=== PATIENT | female | born 1975 | race Caucasian/White ===

== ENCOUNTER 2018-10-23 10:45 | Outpatient (CLI) | payer OTHER, SELFPAY ==
[2018-10-23 14:03] LABS: Cholesterol 238 mg/dL (50-200); HDL Cholesterol 46 mg/dL (40-60); LDL CHOLESTEROL 155 mg/dL (<100); TSH (W/Ref FT4) 1.76 uIU/mL (0.358-3.74); Triglyceride 183 mg/dL (30-150)
== END 2018-10-23 11:05 ==
PROVIDERS: PCP Family Medicine; Visit Provider Family Medicine
DX: Z00.00 Encounter for general adult medical examination without abnormal findings (principal); Z13.220 Encounter for screening for lipoid disorders; Z13.29 Encounter for screening for other suspected endocrine disorder
CPT/HCPCS: 36415; 80061; 83721; 84443

== ENCOUNTER 2019-10-29 19:05 | Outpatient (REF) | payer OTHER, SELFPAY ==
--- NOTE | 2019-10-29 15:30 | PAPFT_PTH ---
PATIENT: Pearl Lira LOC: [facility] U#:[id number] AGE/SX: 44/F ROOM: RE10/29/[address]: Lidia Quispe MD, DC : 1975 BED: DIS: 10/29/2019 SPEC #: [id number] RECD: 10/30/19 12:54 STATUS: YENY REBlanca #: [id number] EUFEMIA: 10/29/19 15:[address]: Lidia Quispe DEPT: [facility] Cytology RECD BY: Sussy Calvert Tissues: 1 - CX/ENDOCX FOR PAP SMEARS Procedures: PAP THIN PREP/UVM Screening Comments: [id number] (CHLAMYDIA/GC)
[2019-10-31 12:14] LABS: Chlamydia Result Negative (Negative); GC Result Negative (Negative)
== END 2019-10-29 19:25 ==
LOC: LBN 19:05
PROVIDERS: PCP Family Medicine; Visit Provider Family Medicine
DX: Z11.3 Encounter for screening for infections with a predominantly sexual mode of transmission (principal); Z12.4 Encounter for screening for malignant neoplasm of cervix; Z11.51 Encounter for screening for human papillomavirus (HPV)
CPT/HCPCS: 87491; 87591; 88142

== ENCOUNTER 2021-01-05 04:20 | Outpatient (CLI) | payer OTHER, SELFPAY ==
[2021-01-05 09:30] LABS: Abs Immature Grans 0.02 10^3/uL (0.0-0.06); Absolute Basophil Count 0.04 10^3/uL (0.0-0.2); Absolute Lymphocyte Count 1.29 10^3/uL (1.2-3.4); Absolute Monocyte Count 0.35 10^3/uL (0.1-0.8); Absolute Neutrophil Count 4.26 10^3/uL (1.2-6.7); Basophils % 0.7; Eosinophils % 1.7; HGB 13.1 g/dL (11.2-15.7); Immature Grans % 0.3; Lymphocytes % 21.3; MCH 29.4 pg (27.0-33.0); MCHC 32.8 % (32.0-36.0); MCV 89.9 fL (80-95); MPV 10.5 fL (8.0-11.0); Monocytes % 5.8; Neutrophils % 70.2; Nucleated RBC 0 %; Platelet Count 215 10^3/uL (130-400); RBC 4.45 10^6/uL (3.93-5.22); RDW 12.5 % (11.7-14.6); RDW-SD 41.2 fL; WBC 6.06 10^3/uL (4.4-10.8)
[2021-01-05 10:35] LABS: ALT 18 U/L (14-59); AST 12 U/L (15-37); Albumin 3.5 g/dL (3.4-5.0); Alkaline Phosphatase 62 U/L (46-116); Anion Gap 8.6 mmol/L (3-11); BUN 8 mg/dL (7-18); Bilirubin, Total 0.4 mg/dL (0.2-1.0); CO2 28.4 mmol/L (21.0-32.0); CREATININE 0.8 mg/dL (0.55-1.02); Calcium 8.6 mg/dL (8.5-10.1); Chloride 106 mmol/L (98-107); Glucose 115 mg/dL (74-106); Potassium 4.1 mmol/L (3.5-5.1); Sodium 143 mmol/L (136-145); TSH (W/Ref FT4) 1.48 uIU/mL (0.36-3.74); Total Protein 6.4 g/dL (6.4-8.2)
== END 2021-01-05 04:21 | disposition home or self-care (01) ==
LOC: LBO 04:21
PROVIDERS: PCP Family Medicine; Visit Provider Family Medicine
DX: Z00.00 Encounter for general adult medical examination without abnormal findings (principal); R53.83 Other fatigue
CPT/HCPCS: 36415; 80053; 84443; 85025

== ENCOUNTER 2021-11-12 15:49 | Outpatient (REF) | payer OTHER, SELFPAY ==
--- NOTE | 2021-11-12 13:15 | PAPFT_PTH ---
PATIENT: Pearl Lira LOC: N U#:[id number] AGE/SX: 46/F ROOM: RE11/12/[address]: Smita Baer DO : 1975 BED: DIS: 11/12/2021 SPEC #: [id number] RECD: 11/12/21 17:51 STATUS: YENY REBlanca #: [id number] EUFEMIA: 11/12/21 13:[address]: Smita Baer DEPT: [facility] Cytology RECD BY: Sussy Calvert ENTERED: 11/12/21 17:51 SP TYPE: PAPFT OTHR DR: Lidia Quispe MD, DC Tissues: 1 - CX/ENDOCX FOR PAP SMEARS Procedures: PAP THIN PREP/UVM Screening HPV DNA PROBE Comments: [id number] (CHLAMYDIA/GC)
[2021-11-17 14:31] LABS: Chlamydia Result Negative (Negative); GC Result Negative (Negative)
== END 2021-11-12 15:50 | disposition home or self-care (01) ==
LOC: LBN 15:49
PROVIDERS: PCP Family Medicine; Visit Provider Obstetrics & Gynecology
DX: Z12.4 Encounter for screening for malignant neoplasm of cervix (principal); Z11.51 Encounter for screening for human papillomavirus (HPV); Z11.3 Encounter for screening for infections with a predominantly sexual mode of transmission
CPT/HCPCS: 87491; 87591; 88142; 87624

== ENCOUNTER 2022-03-17 02:57 | Outpatient (CLI) | payer OTHER, SELFPAY ==
[2022-03-17 14:11] LABS: HCT 40.2 % (36.0-46.0); HGB 13.7 g/dL (11.2-15.7); MCH 30.2 pg (27.0-33.0); MCHC 34.1 % (32.0-36.0); MCV 89 fL (80-95); MPV 10.4 fL (8.0-11.0); Platelet Count 263 10^3/uL (130-400); RBC 4.53 10^6/uL (3.93-5.22); RDW 12.6 % (11.7-14.6); RDW-SD 41.3 fL; WBC 7.49 10^3/uL (4.4-10.8)
[2022-03-17 15:52] LABS: Ferritin 35 ng/mL (8-252); TSH (W/Ref FT4) 1.71 uIU/mL (0.36-3.74)
[2022-03-17 16:15] LABS: Iron 80 ug/dL (50-170)
== END 2022-03-17 02:58 | disposition home or self-care (01) ==
LOC: LBO 02:58
PROVIDERS: PCP Family Medicine; Visit Provider Family Medicine
DX: N93.8 Other specified abnormal uterine and vaginal bleeding (principal); R53.83 Other fatigue
CPT/HCPCS: 36415; 85027; 82728; 83540; 84443

== ENCOUNTER → 2023-05-18 03:16 | Outpatient (CLI) | payer BC, SELFPAY ==
--- NOTE | 2023-05-18 07:45 | DI.MAMMO_ITS ---
Exam(s) MAMMO SCREENING EXAM: MAMMO SCREENING CLINICAL HISTORY: screening,Z12.39 TECHNIQUE: Bilateral full field digital CC and MLO mammographic images were obtained with 3D tomosyn thesis and utilizing computer aided detection (CAD). COMPARISON: This is a baseline examination. FINDINGS: Masses/Architectural Distortion: There is a small focal asymmetry in the retroareolar region of the r ight breast on the MLO view. Microcalcifications: No suspicious pleomorphic-type are seen. Skin Thickening/Nipple Retraction: None. IMPRESSION: 1. Small focus of asymmetric breast tissue in the retroareolar region of the right breast on the MLO view. 2. Spot compression views requested for further evaluation. Limited right breast ultrasound may also be indicated at that time. BI-RADS Category 0 - Assessment Incomplete: Need additional imaging evaluation Breast Density - Category C - Heterogeneously dense Breast density category C or D implies that the patient has dense breast tissue. Dense breast tissue is very common and is not abnormal but dense breast tissue can make it harder to find cancer on a ma mmogram. Also, dense breast tissue may increase their breast cancer risk. This information about the result of the mammogram report was provided to the patient to raise their awareness. Use this report when you speak with the patient about their risks for breast cancer, which includes their family hist ory. At that time, you may recommend for more screening tests (Ultrasound or MRI) as they might be us eful based on their risk. A negative radiographic report should not delay biopsy if a dominant or clinically suspicious mass is present. Up to ten percent of cancers are not identified on mammography. A negative report may reinforce clinical impression. Adenosis and dense breasts may obscure an underlying neoplasm. False positive reports average 6 to 10%. Patient will receive a letter notifying them of these results.
== END ==
PROVIDERS: PCP Family Medicine; Visit Provider Nurse Practitioner Family
DX: Z12.31 Encounter for screening mammogram for malignant neoplasm of breast (principal); R92.8 Other abnormal and inconclusive findings on diagnostic imaging of breast
CPT/HCPCS: 77063; 77067

== ENCOUNTER → 2023-05-26 02:00 | Outpatient (CLI) | payer BC, SELFPAY ==
--- NOTE | 2023-05-26 | DI.MAMMO_ITS ---
Exam(s) MAMMO SCREEN CALL BACK UNI EXAM: MAMMO SCREEN CALL BACK UNI CLINICAL HISTORY: F/U MAMMO, ASYMMETRIC BREAST TISSUE RT,R92.8. TECHNIQUE: Craniocaudal and mediolateral oblique spot compression digital Mammography views of the r ightbreast with Tomosynthesis and right breast ultrasound. COMPARISON: Baseline examination of 18 May 2023 FINDINGS: Mammography/Tomosynthesis: Masses/Architectural Distortion: None seen. No persistent abnormality. Findings consistent with ov erlying fibroglandular tissue. Microcalcifictions: No suspicious pleomorphic-type are seen. Skin Thickening/Nipple Retraction: None. Right breast US: Echotexture: Normal appearance of the glandular tissue. Shadowing: No suspicious foci. Cyst: None. Solid lesions: None seen. Ductal dilation: None. IMPRESSION: 1. No evidence of malignancy is noted. 2. Unless there is more urgent need, follow-up screening mammography is recommended, as per [place] [employer] [employer] guidelines. 3. The findings were discussed with the patient on the date of the examination. BI-RADS Category 1 - Negative Breast Density - Category C - Heterogeneously dense A mammogram that demonstrates density of C or D indicates the patient's breast tissue is dense. Dense breast tissue is very common and is not abnormal, but dense breast tissue can make it harder to find cancer on a mammogram. Also, dense breast tissue may increase their breast cancer risk. This informa tion about the result of the mammogram report was provided to the patient to raise their awareness. U se this report when you speak with the patient about their risks for breast cancer, which includes th eir family history. At that time, you may recommend for more screening tests (Ultrasound or MRI) as t hey might be useful based on their risk. A negative radiographic report should not delay biopsy if a dominant or clinically suspicious mass is present. Up to ten percent of cancers are not identified on mammography. A negative report may reinforce clinical impression. Adenosis and dense breasts may obscure an underlying neoplasm. False positive reports average 6 to 10%. Patient will receive a letter notifying them of these results.
--- NOTE | 2023-05-26 11:09 | DI.US_ITS ---
Exam(s) MG MAMMO SCREEN CALL BACK UNI US BREAST RT LIMITED EXAM: MG MAMMO SCREEN CALL BACK UNI CLINICAL HISTORY: F/U MAMMO, ASYMMETRIC BREAST TISSUE RT,R92.8. TECHNIQUE: Craniocaudal and mediolateral oblique spot compression digital Mammography views of the r ightbreast with Tomosynthesis and right breast ultrasound. COMPARISON: Baseline examination of 18 May 2023 FINDINGS: Mammography/Tomosynthesis: Masses/Architectural Distortion: None seen. No persistent abnormality. Findings consistent with ov erlying fibroglandular tissue. Microcalcifictions: No suspicious pleomorphic-type are seen. Skin Thickening/Nipple Retraction: None. Right breast US: Echotexture: Normal appearance of the glandular tissue. Shadowing: No suspicious foci. Cyst: None. Solid lesions: None seen. Ductal dilation: None. IMPRESSION: 1. No evidence of malignancy is noted. 2. Unless there is more urgent need, follow-up screening mammography is recommended, as per [place] [employer] guidelines. 3. The findings were discussed with the patient on the date of the examination. BI-RADS Category 1 - Negative Breast Density - Category C - Heterogeneously dense A mammogram that demonstrates density of C or D indicates the patient's breast tissue is dense. Dense breast tissue is very common and is not abnormal, but dense breast tissue can make it harder to find cancer on a mammogram. Also, dense breast tissue may increase their breast cancer risk. This informa tion about the result of the mammogram report was provided to the patient to raise their awareness. U se this report when you speak with the patient about their risks for breast cancer, which includes th eir family history. At that time, you may recommend for more screening tests (Ultrasound or MRI) as t hey might be useful based on their risk. A negative radiographic report should not delay biopsy if a dominant or clinically suspicious mass is present. Up to ten percent of cancers are not identified on mammography. A negative report may reinforce clinical impression. Adenosis and dense breasts may obscure an underlying neoplasm. False positive reports average 6 to 10%. Patient will receive a letter notifying them of these results.
== END ==
PROVIDERS: PCP Family Medicine; Visit Provider Nurse Practitioner Family
DX: Z12.31 Encounter for screening mammogram for malignant neoplasm of breast (principal); N60.21 Fibroadenosis of right breast
CPT/HCPCS: 76642; 77063; 77067

== ENCOUNTER 2023-11-04 01:29 | Outpatient (CLI) | payer BC, SELFPAY ==
[2023-11-04 07:54] LABS: HCT 39.9 % (36.0-46.0); HGB 13.2 g/dL (11.2-15.7); MCH 29.5 pg (27.0-33.0); MCHC 33.1 % (32.0-36.0); MCV 89 fL (80-95); MPV 10.3 fL (8.0-11.0); Platelet Count 259 10^3/uL (130-400); RBC 4.48 10^6/uL (3.93-5.22); RDW 12.6 % (11.7-14.6); RDW-SD 41.3 fL; WBC 5.55 10^3/uL (4.4-10.8)
[2023-11-04 08:03] LABS: ALT 19 U/L (14-59); AST 12 U/L (15-37); Albumin 3.3 g/dL (3.4-5.0); Alkaline Phosphatase 56 U/L (46-116); Anion Gap 9.8 mmol/L (3-11); BUN 12 mg/dL (7-18); Bilirubin, Total 0.4 mg/dL (0.2-1.0); CO2 26.2 mmol/L (21.0-32.0); CREATININE 0.8 mg/dL (0.55-1.02); Chloride 105 mmol/L (98-107); Estimated GFR 90.83 (mL/min/1.73m2); Glucose 101 mg/dL (74-106); Potassium 4.1 mmol/L (3.5-5.1); Sodium 141 mmol/L (136-145); Total Protein 6.5 g/dL (6.4-8.2)
[2023-11-04 08:11] LABS: Calculated LDL 150 mg/dL (<100); Cholesterol 235 mg/dL (<200); HDL Cholesterol 54 mg/dL (40-60); Triglyceride 157 mg/dL (<150)
[2023-11-04 08:45] LABS: Iron 95 ug/dL (50-170)
== END 2023-11-04 01:30 | disposition home or self-care (01) ==
PROVIDERS: Nurse Practitioner Family; PCP Family Medicine; Visit Provider Family Medicine
DX: Z00.00 Encounter for general adult medical examination without abnormal findings (principal); R53.83 Other fatigue
CPT/HCPCS: 36415; 80048; 80053; 80061; 85027; 83036; 83540; 84443

== ENCOUNTER 2023-11-25 07:07 | Day surgery (SDC) | payer BC, SELFPAY ==
--- NOTE | 2023-11-24 11:50 | PDOC.DSDIS_ITS ---
Date of service: 11/25/23 Time of Service: 09:14 Discharge Plan Disposition Patient Disposition: Home Discharge Details Reason For Visit: colon cancer screening Attending Provider: Bisi Kenyon Primary Care Provider: Lidia Quispe Home Meds and New Rx's Prescriptions: Continued Mirena 21 mcg/24 hours (8 yrs) 52 mg intrauterine device 1 device intrauterine ONCE Qty: 1 0RF Rx Instructions: as a single dose Prempro 0.625-2.5 mg tablet 1 tab PO DAILY Qty: 84 8RF acetaminophen 500 MG tablet 1,000 mg PO DAILY PRN citalopram 20 mg tablet 20 mg PO DAILY Qty: 90 4RF Discontinued polyethylene glycol 3350 17 gram/dose powder 238 g PO ONCE Qty: 238 0RF Rx Instructions: take per colonoscopy instructions bisacodyl [Dulcolax (bisacodyl)] 5 mg tablet,delayed release (DR/EC) 5 mg PO ONCE Qty: 8 0RF Rx Instructions: take per colonoscopy instructions Discharge Instructions Additional Instructions: DSU Colonoscopy Post- Op Instructions Instructions for Everyone who is given Anesthesia: For your safety, please do the following for the next twenty-four (24) hours: *Do Not operate a motor vehicle (car, truck, motorcycle, etc.) *Do Not drink alcoholic beverages or use any recreational drugs for the first 24 hours or while taking pain medications. The medications in your body may have a reaction that can be dangerous. *Do Not make any important decisions or sign any important papers. Findings: Rectocele Follow up: Repeat colonoscopy in 10 years time Consider doing pelvic floor PT 1. No lifting over 20 pounds or strenuous activity for the first 24 hours after your procedure. After 24 hours there are no restrictions on your activity but you may feel fatigued for a few days. 2. After you arrive home you may have a light meal and return to your normal diet as you can tolerate it without feeling sick to your stomach. 3. You may have a bloated, gaseous feeling in your belly (abdomen) after a colonoscopy. Passing gas and belching will help. Walking or lying down on your left side with your knees flexed may relieve the discomfort. Call the office at [phone] (Office) or [phone] (Hospital) right away i f you notice any of the following: a.Vomiting of blood or ?coffee ground stools?. b.Rectal bleeding 1Tbsp, blood clots or continuous bleeding. c.Severe belly (abdominal) pain. d.A hard distended belly (abdomen) and an inability to pass gas. 4. Please don?t expect to have a normal BM (bowel movement) for 2-3 days after your procedure. 5. If there are questions regarding the findings of your procedure, please contact your doctor 6. If you are unable to contact your doctor with a problem, contact the hospital at [phone]. 7. Continue all your regular medications unless directed otherwise. I understand the above instructions and have no questions. Signature of Patient or Adult Escort Name of Responsible Adult Escort Signature of Nurse Date/Time Stand Alone Forms: Anesthesia Discharge Inst., Enriqueta Almonte (DSU) Activity:: see above Diet:: see above Discharge Orders Discharge Orders: Discharge Order (Routine); Ordered 11/25/23 Ordered By: Bisi Kenyon DS: Diagnosis Discharge Diagnosis (1) Depressive disorder: Status: Chronic (2) ADD (attention deficit disorder): Status: Acute (3) GERD (gastroesophageal reflux disease): Status: Chronic (4) Rectocele: Status: Chronic (5) DUB (dysfunctional uterine bleeding): Status: Acute (6) Menopausal disorder: Status: Acute (7) Pelvic floor dysfunction in female: Status: Acute (8) Screening for malignant neoplasm of colon performed: Status: Acute Asessment and Plan: The patient is seen and examined after their colonoscopy.? The patient has been able to pass gas.? They are not having abdominal pain.? They have been able to tolerate liquids and a snack.? They do not have any nausea or vomiting.? They are not having any chest pain or shortness of breath.??? They are not having any rectal bleeding. Their vital signs have been stable-see nursing notes. We discussed findings during their colonoscopy, and any biopsies that were done/polyps that were removed. The patient will be sent a letter with any biopsy results, and when to repeat the colonoscopy.-see discharge instructions. Patient was given explicit instructions to follow-up regarding colonoscopy-refer to discharge instructions.? We reviewed resumption of medications. Patient verbalized understanding and discharged in stable and satisfactory condition- See nursing notes.
--- NOTE | 2023-11-24 11:50 | COLE_ITS ---
Date of service: 11/25/23 Time of Service: 09:10 Colonoscopy Report Date of procedure: 11/25/23 Pre-op diagnosis general: chronic constipation/pelvic floor dysfunction Post-op diagnosis procedure note: other (Small rectocele) Surgeon: Bisi Kenyon Anesthesia Type: General:No Airway Estimated blood loss (mL): 0 Pathology: other Complications: None Disposition: no change Prep: Miralax/Dulcolax Retraction Time: 16 Procedure Description: After informed consent was obtained the patient was taken to the procedure room and placed in a left decubitous position. Monitors were applied and a time out was done. The patients name, date of , procedure, allergies to medications and metal in their body was reviewed. Modified pelvic exam was done. She does have a small rectocele. The patient was then sedated. Once sedated and comfortable a rectal exam was done. External exam was normal. Internal exam revealed a normal sphincter tone and no palpable masses. The scope was then introduced and retrofelexed. No internal hemorrhoids were identified. The scope was then advanced to the cecum without difficulty. The TI and appendiceal orifice were identified. The scope was then slowly retracted over 16 minutes back into the rectum. There are no polyps, AVMs, or diverticula visualized today. Mucosa is pink and healthy with a normal vascular pattern. Random biopsies are taken at 40 cm and from the rectum. The scope was removed and the patient was woken up and taken back to Same day surgery in stable condition. The patient tolerated the procedure well and there were no immediate complications. Follow up: The patient should follow up in 10 years unless they develop changes in bowel habits or other new gastrointestinal complaints. [place] Bowel Prep [place] Bowel Prep Right Colon: 2 Left Colon: 2 Transverse Colon: 2 Total Score: 6
[2023-11-25 07:15] VITALS: BP 96/53; PULSE 80; RESP 20; TEMP 36.4; O2SAT 97
[2023-11-25] MEDS: Lactated Ringers 1,000 ML 80 ML IV (07:41)
[2023-11-25 08:14] VITALS: BMI 24.3
--- NOTE | 2023-11-25 08:14 | W.ANESPRE ---
General Info Date of Service Date Performed: 11/25/23 Height: 5 ft 5.5 in Weight: 67.4 kg Body Mass Index (BMI): 24.3 Surgical Procedure: Operation Date: 11/25/23 08:35 Proposed Procedure Side Surgeon p Colonoscopy, Pelvic Exam Bisi Kenyon DO Actual Procedure Side Surgeon p Colonoscopy, Pelvic Exam Not Applicable Bisi Kenyon DO Pre-Op Diagnosis Post-Op Diagnosis colon cancer screening Meds Allergies and Home Medications Allergies Allergy/AdvReac Type Severity Reaction Status Date / Time No Known Allergies Allergy Verified 11/25/23 07:27 Home Medication Medication Instructions Recorded acetaminophen 500 mg tablet 1,000 mg PO DAILY PRN 12/11/12 citalopram 20 mg tablet 20 mg PO DAILY #90 tabs 04/01/23 levonorgestrel 21 mcg/24 hours (8 1 device intrauterine ONCE #1 ea 05/06/23 yrs) 52 mg intrauterine device (Mirena) Prempro 0.625 mg-2.5 mg tablet 1 tab PO DAILY #84 tabs 10/18/23 (conj estrog-medroxyprogest aleena) Current Visit Medications: Current Medications Generic Name Dose Route Start Last Admin Trade Name Freq PRN Reason Stop Dose Admin Hyoscyamine Sulfate 0.125 mg 11/25/23 11:48 Hyoscyamine 0.125 Mg Sl/Oral/Chew SL 12/25/23 11:47 DIRECTED PRN Ringer's Solution 1,000 mls @ 80 mls/hr 11/25/23 06:00 11/25/23 07:41 IV 12/24/23 23:59 80 mls/hr INFUSION ALBERTO Administration IV Miscellaneous Supplies 1 each 11/25/23 06:00 Iv Access IV 12/24/23 23:59 DIRECTED ALBERTO Ondansetron HCl 4 mg 11/25/23 11:48 Ondansetron 4 Mg/2 Ml Vial IVP 12/25/23 11:47 Q4H PRN PRN Nausea / Vomiting Sodium Chloride 0 ml 11/25/23 06:00 Normal Saline Flush 10 Ml Syr IV 12/24/23 23:59 PRN PRN Sodium Chloride 0 ml 11/25/23 06:00 Normal Saline 10 Ml Vial IJ 12/24/23 23:59 DIRECTED PRN Sterile Water 0 ml 11/25/23 06:00 Water,Injection,Sterile 10 Ml Vial IJ 12/24/23 23:59 DIRECTED PRN PFSH Active Problems Active Problems: Problem Status Onset Code Screening for malignant neoplasm of colon performed Z12.11 Pelvic floor dysfunction in female M62.89 Menopausal disorder N95.9 IUD check up Z30.431 Menorrhagia N92.0 DUB (dysfunctional uterine bleeding) N93.8 Fatigue R53.83 ADD (attention deficit disorder) F98.8 Rectocele 06/25/13 N81.6 GERD (gastroesophageal reflux disease) 03/08/14 K21.9 Depressive disorder 06/25/13 F32.9 Medical History Medical History Constipation Dysfunctional uterine bleeding Encounter for annual physical exam (07/28/15) Gestational diabetes mellitus History of miscarriage Dysfunctional uterine bleeding Gestational diabetes mellitus History of miscarriage x 3 Constipation senna/diet Annual physical exam 07/28/15 Depressive disorder GERD (gastroesophageal reflux disease) TMJ (dislocation of temporomandibular joint) Rectocele Surgical History Surgical History EGD - IV Sedation (11/23/16) Tobacco Smoking/Tobacco Use Status: Never Passive smoking exposure: No Alcohol Alcohol Intake: current Alcohol intake frequency: a few times a month Alcohol type: wine and hard liquor Substance Use Substance use: Occasionally Substance use type: marijuana Vital Signs and Lab Results Vital Signs Most Recent Vital Signs in EMR: Most Recent Vital Signs Temp Pulse Resp BP Pulse Ox 36.4 C L 80 20 96/53 L 97 11/25/23 07:15 11/25/23 07:15 11/25/23 07:15 11/25/23 07:15 11/25/23 07:15 Point of Care Results Point of Care Results: POC- Test(urine) Negative 11/25/23 07:32 Lab Results Blood Type / Crossmatch: No Data to Display Complete Blood Count: White Blood Count 5.55 10^3/uL (4.4-10.8) 11/04/23 07:40 Red Blood Count 4.48 10^6/uL (3.93-5.22) 11/04/23 07:40 Hemoglobin 13.2 g/dL (11.2-15.7) 11/04/23 07:40 Hematocrit 39.9 % (36.0-46.0) 11/04/23 07:40 Platelet Count 259 10^3/uL (130-400) 11/04/23 07:40 Complete Metabolic Panel: Sodium 141 mmol/L (136-145) 11/04/23 07:40 Potassium 4.1 mmol/L (3.5-5.1) 11/04/23 07:40 Chloride 105 mmol/L (98-107) 11/04/23 07:40 Carbon Dioxide 26.2 mmol/L (21.0-32.0) 11/04/23 07:40 BUN 12 mg/dL (7-18) 11/04/23 07:40 Creatinine 0.8 mg/dL (0.55-1.02) 11/04/23 07:40 Est GFR (CKD-EPI 2020) 90.83 (mL/min/1.73m2) 11/04/23 07:40 Calcium 9.0 mg/dL (8.5-10.1) 11/04/23 07:40 Albumin 3.3 g/dL (3.4-5.0) L 11/04/23 07:40 Glucose 101 mg/dL (74-106) 11/04/23 07:40 Hemoglobin A1c 5.0 % (<5.7) 11/04/23 07:40 Liver Function Panel: Alanine Aminotransferase (ALT/SGPT) 19 U/L (14-59) 11/04/23 07:40 Aspartate Amino Transf (AST/SGOT) 12 U/L (15-37) L 11/04/23 07:40 Coagulation Panel: No Data to Display Cardiac Panel: No Data to Display Arterial Blood Gas: No Data to Display Venous Blood Gas: No Data to Display Pancreas Panel: No Data to Display Thyroid Panel: Thyroid Stimulating Hormone (TSH) 1.90 uIU/mL (0.36-3.74) 11/04/23 07:40 Infectious Disease: No Data to Display Blood Cultures: No Data to Display Toxicology Panel: No Data to Display Panel: No Data to Display Anesthesia Assessment and Plan Anesthesia History Personal History: No History of Anesthesia Complications Family History: No Family History of Anesthesia Complications Exercise Tolerance Exercise Tolerance: Metabolic Equivalents>4 Pertinent Negatives Pertinent Negatives: No Symptoms of GERD Cardiac & Pulmonary Exam Cardiac Exam: Normal S1/S2 Heart Sounds Pulmonary Exam: Clear Bilateral Breath Sounds Implantable Cardiac Device Does patient have a Pacemaker or an ICD?: No Airway Exam Known Difficult Airway: No Mallampati Class: 2 Mouth Opening: Normal (> 3cm) Thyromental Distance: Greater than 3 cm Neck Range of Motion: Full ROM Neck Circumference: Normal Teeth Condition: Normal Dentition ASA Classification ASA Score: ASA 2 Emergency Case?: No NPO Status NPO Status: NPO Clears >2 hours, Solids >8 hours Status Status: Negative HCG Anesthesia Plan Resuscitation Status: Full Code Anesthesia Technique: General Anesthesia Airway Planned: Natural Airway Monitors Used: Standard Monitors
--- NOTE | 2023-11-25 08:45 | BOWEL_PTH ---
PATIENT: Pearl Lira LOC: [facility] U#:[id number] AGE/SX: 48/F ROOM: RE11/25/[address]: Bisi Kenyon : 1975 BED: DIS: 11/25/2023 SPEC #: [id number] RECD: 11/25/23 12:39 STATUS: YENY REQ #: [id number] EUFEMIA: 11/25/23 08:[address]: Bisi Kenyon DEPT: Surgical Specimen RECD BY: Sussy Calvert ENTERED: 11/25/23 12:39 SP TYPE: Bowel OTHR DR: Lidia Quispe MD, DC Tissues: 1 - BIOPSY BOWEL 2 - BIOPSY BOWEL Procedures: GROSS AND MICRO LEVEL 4 Comments: [id number]
[2023-11-25 08:55] VITALS: BP 96/52; PULSE 71; RESP 16; TEMP 36.2; O2SAT 100
--- NOTE | 2023-11-25 08:58 | W.ANESPOSTOP ---
Postoperative Evaluation Date, Time and Location Date Performed: 11/25/23 Time Performed: 08:59 Patient Location: Day Surgery Unit Vital Signs Most Recent Imported Vital Signs: Most Recent Vital Signs Temp Pulse Resp BP Pulse Ox 36.4 C L 80 20 96/53 L 97 11/25/23 07:15 11/25/23 07:15 11/25/23 07:15 11/25/23 07:15 11/25/23 07:15 Assessment Mental Status: Awake (Alert & Oriented to Patient Baseline) Airway and Respiratory Function: Patent airway with normal (patient baseline) respiratory exam Cardiovascular Function: Hemodynamically Stable Hydration Status: Adequately Hydrated Nausea & Vomiting: No Nausea or Vomiting Pain: Pt. Denies Any Pain Peripheral Nerve Block: Patient did not receive a nerve block
[2023-11-25 09:25] VITALS: BP 103/51; PULSE 67; RESP 16; TEMP 36.4; O2SAT 100
== END 2023-11-25 09:42 | disposition home or self-care (01) ==
LOC: SUR 07:07
PROVIDERS: PCP Family Medicine; Visit Provider Surgery
PROC: 0DJD8ZZ Inspection of Lower Intestinal Tract, Via Natural or Artificial Opening Endoscopic (ICD-10-PCS; CPT 45378; principal; 2023-11-25 08:30)
DX: Z12.11 Encounter for screening for malignant neoplasm of colon; K63.5 Polyp of colon; K21.9 Gastro-esophageal reflux disease without esophagitis; N81.6 Rectocele; F32.9 Major depressive disorder, single episode, unspecified
CPT/HCPCS: 45380; 81025; 88305; J2001; J2704

== ENCOUNTER 2024-07-19 03:01 | Outpatient (CLI) | payer BC, SELFPAY ==
--- NOTE | 2024-07-19 12:28 | DI.MAMMO_ITS ---
Exam(s) MAMMO SCREENING EXAM: MAMMO SCREENING CLINICAL HISTORY: screening.Z12.39 TECHNIQUE: Bilateral full field digital CC and MLO mammographic images were obtained with 3D tomosyn thesis and utilizing computer aided detection (CAD). COMPARISON: Available for comparison. FINDINGS: Masses/Architectural Distortion: None seen. Microcalcifications: No suspicious pleomorphic-type are seen. Skin Thickening/Nipple Retraction: None. IMPRESSION: 1. No significant interval change with no specific features of malignancy noted. 2. Unless there is more urgent need, screening mammography is recommended, as per [place] [employer] guidelines. BI-RADS Category 1 - Negative Breast Density - Category B - Scattered areas of fibroglandular density Breast density category C or D implies that the patient has dense breast tissue. Dense breast tissue is very common and is not abnormal but dense breast tissue can make it harder to find cancer on a ma mmogram. Also, dense breast tissue may increase their breast cancer risk. This information about the result of the mammogram report was provided to the patient to raise their awareness. Use this report when you speak with the patient about their risks for breast cancer, which includes their family hist ory. At that time, you may recommend for more screening tests (Ultrasound or MRI) as they might be us eful based on their risk. A negative radiographic report should not delay biopsy if a dominant or clinically suspicious mass is present. Up to ten percent of cancers are not identified on mammography. A negative report may reinforce clinical impression. Adenosis and dense breasts may obscure an underlying neoplasm. False positive reports average 6 to 10%. Patient will receive a letter notifying them of these results.
== END 2024-07-19 03:21 ==
LOC: DI 03:01
PROVIDERS: PCP Family Medicine; Visit Provider Family Medicine
DX: Z12.31 Encounter for screening mammogram for malignant neoplasm of breast (principal); R92.323 Mammographic fibroglandular density, bilateral breasts
CPT/HCPCS: 77063; 77067

== ENCOUNTER 2025-07-08 11:10 | Outpatient (REF) | payer BC, SELFPAY ==
--- NOTE | 2025-07-08 11:00 | PAPFT_PTH ---
PATIENT: Pearl Lira LOC: [facility] U#:[id number] AGE/SX: 50/F ROOM: RE07/08/[address]: Lidia Quispe MD, DC : 1975 BED: DIS: 07/08/2025 SPEC #: [id number] RECD: 07/08/25 18:02 STATUS: YENY CULVER #: [id number] EUFEMIA: 07/08/25 11:[address]: Lidia Quispe DEPT: [facility] Cytology RECD BY: Sussy Calvert Tissues: 1 - CX/ENDOCX FOR PAP SMEARS Procedures: PAP THIN PREP/UVM Screening HPV DNA PROBE Comments: [id number] (HPV 16 & 18/45)
== END 2025-07-08 11:11 | disposition home or self-care (01) ==
LOC: LBN 11:10
PROVIDERS: PCP Family Medicine; Visit Provider Family Medicine
DX: Z12.4 Encounter for screening for malignant neoplasm of cervix (principal)
CPT/HCPCS: 88142; 87624